=== PATIENT | female | born 1995 | race Asian ===

== ENCOUNTER 2019-09-09 16:16 | Emergency (ER) | payer OTHER ==
[2019-09-09 16:30] VITALS: BP 122/83
--- NOTE | 2019-09-09 17:05 | UC ---
Throat Pain/Nasal Richie HPI - HPI Summary HPI Summary: 23-year-old female who has had left-sided neck soreness for 5 days which no feels like it swollen and she has difficulty swallowing and now has pain across anterior neck as well. She denies any fever or chills. Denies a sore throat. - History of Current Complaint Chief Complaint: UCGeneralIllness Stated Complaint: SORE THROAT Time Seen by Provider: 09/09/19 16:32 Hx Obtained From: Patient Hx Last Menstrual Period: 08/26/19 ?: No Onset/Duration: Gradual Onset Severity: Mild Pain Intensity: 9 Cough: None Associated Signs & Symptoms: Positive: Negative - Allergies/Home Medications Allergies/Adverse Reactions: Allergies Allergy/AdvReac Type Severity Reaction Status Date / Time No Known Allergies Allergy Verified 09/09/19 16:29 Home Medications: Home Medications Desog-E.estradiol/E.estradiol [Viorele 28 Day Tablet] 1 mg PO DAILY WITH MEAL [History Confirmed 09/09/19] PMH/Surg Hx/FS Hx/Imm Hx Previously Healthy: Yes - Surgical History Surgical History: None - Family History Known Family History: Positive: Non-Contributory - Social History Alcohol Use: Weekly Substance Use Type: None Smoking Status (MU): Never Smoked Tobacco Review of Systems All Other Systems Reviewed And Are Negative: Yes ENT: Positive: Other - No sore throat but patient has left-sided neck pain which is now anterior neck pain as well with a feeling of difficulty swallowing. Is Patient Immunocompromised?: No Physical Exam Triage Information Reviewed: Yes Appearance: Well-Appearing, No Pain Distress, Well-Nourished Vital Signs: Initial Vital Signs Temp 99.9 F 09/09/19 16:26 Pulse 100 09/09/19 16:26 Resp 18 09/09/19 16:26 BP 122/83 09/09/19 16:26 Pulse Ox 99 09/09/19 16:26 Vital Signs Reviewed: Yes Eyes: Positive: Conjunctiva Clear ENT: Positive: Hearing grossly normal, Pharynx normal, TMs normal, Uvula midline Neck: Positive: Supple, No Lymphadenopathy, Other: - Mild tenderness left side of neck on palpation. Mild tenderness anterior neck. Trachea is midline, no erythema, deformity, swelling or bruising. Respiratory: Positive: Lungs clear, Normal breath sounds, No respiratory distress, No accessory muscle use Cardiovascular: Positive: RRR, No Murmur, Pulses Normal, Brisk Capillary Refill Musculoskeletal Exam: Normal Neurological Exam: Normal Psychological Exam: Normal Skin Exam: Normal Throat Pain/Nasal Course/Dx - Course Course Of Treatment: Rapid strep test negative Soft tissue neck:INDICATION: Difficulty swallowing neck soreness. COMPARISON: There are no relevant prior studies available for comparison. TECHNIQUE: AP and lateral images of the soft tissue of the neck were obtained. FINDINGS: The epiglottic and aryepiglottic folds appear normal. The airway appears patent. There appears to be slight prominence of the retropharyngeal soft tissues. Consider further evaluation with CT imaging. IMPRESSION: MILD PROMINENCE OF THE RETROPHARYNGEAL SOFT TISSUES. CONSIDER CT IMAGING OF THE NECK WITH CONTRAST FOR FURTHER EVALUATION. I reviewed the soft tissue neck x-ray with the patient. She needs to leave because she has an examination in 30 minutes from now. She is not in any distress. I referred her to the ear nose and throat physician to follow-up first thing in the morning for further care. It is suggested on the x-ray to do a CT with contrast and I advised the patient of this and stressed the importance of follow-up. She is agreeable to this plan of action and states she will call the ear nose throat physician in the morning. If she develops any worsening of symptoms, difficulty breathing, difficulty swallowing she is to go to the emergency room immediately - Differential Dx/Diagnosis Provider Diagnosis: Neck pain on left side Discharge ED - Sign-Out/Discharge Documenting (check all that apply): Patient Departure All imaging exams completed and their final reports reviewed: Yes - Discharge Plan Condition: Good Disposition: HOME Patient Education Materials: Neck Pain (ED) Referrals: Blayne Moyer MD [Medical Doctor] - No Primary Care Phys,NOPCP [Primary Care Provider] - Additional Instructions: Tylenol for pain. Your CAT scan was possibly abnormal and you are to follow-up with an ear nose and throat physician in the next 24 hours there is a possibility may need a CAT scan with contrast of your neck. If you develop any difficulty breathing, you're unable to swallow her saliva your to go immediately to the emergency room. - Billing Disposition and Condition Condition: GOOD Disposition: Home
== END 2019-09-09 18:04 | disposition home or self-care (01) ==
LOC: UCEAST 16:16
DX: M54.2 Cervicalgia (principal); R13.10 Dysphagia, unspecified
CPT/HCPCS: 70360; 87651; 99201; G0463